=== PATIENT | male | born 1965 | race Caucasian/White ===

== ENCOUNTER 2020-05-12 10:17 | Emergency (ER) | payer OTHER ==
--- NOTE | 2020-05-12 11:00 | RAD ---
XR Lumbar Spine 2 Or 3 View HISTORY: Low back pain FINDINGS: Degenerative changes are present. No acute fracture, subluxation or bony destruction is seen. IMPRESSION: lumbar spondylosis
[2020-05-12] MEDS ORDERED: Ketorolac Tromethamine 30 MG/ML VIAL ONE ×2 (11:16→11:19)
[2020-05-12] MEDS ORDERED: Diazepam 5 MG TAB ONE (11:16)
[2020-05-12] MEDS ORDERED: Dexamethasone 10 MG/ML VIAL ONE (12:00)
== END 2020-05-12 12:45 | disposition home or self-care (01) ==
LOC: ERS 10:17
DX: M47.816 Spondylosis without myelopathy or radiculopathy, lumbar region (principal); F17.210 Nicotine dependence, cigarettes, uncomplicated; X50.9XXA Other and unspecified overexertion or strenuous movements or postures, initial encounter; Y99.0 Civilian activity done for income or pay
CPT/HCPCS: 72100; J1100; J1885